=== PATIENT | female | born 1975 | race Caucasian/White ===

== ENCOUNTER 2017-09-14 17:43 | Emergency (ER) | payer OTHER ==
[~2017-09-14] VITALS: Ht 175.3 cm; Wt 72.6 kg
[~2017-09-14 17:43] MED LIST: APAP/CODEINE 301 TAB PO; BACTRIM DS TAB1 EACH PO; BENADRYL ALLERG25 MG PO; CHANTIX STARTING1 MG PO; EC NAPROSYN375 MG PO; FIORICET 325 MG1 TAB PO; FLEXERIL 5MG TAB5 MG PO; FLEXERIL10 MG PO; IBU800 MG PO; MOTRIN 600 MG600 MG PO; NICODERM C21 MG/24 H TOP; PERCOCET 325 MG1 TA2 PO; PREDNISONE 10MG10 M1 PO; PREDNISONE10 MG PO; PREDNISONE50 MG PO; Senokot S PO; VICODIN 300 MG-1 TAB PO; ZITHROMAX Z-PA250 M1 PO; ZITHROMAX250 M1 PO; ZOFRAN ODT4 M1 PO; ZOFRAN ODT4 MG SL
[2017-09-14 17:46] VITALS: BP 134/84
--- NOTE | 2017-09-14 18:23 | RADIOLOGY REPORT ---
EXAMINATION: XR HAND, RIGHT CLINICAL INFORMATION: Fall on right hand. Pain. COMPARISON: None TECHNIQUE: PA, lateral, and oblique views of the right hand. FINDINGS: The bones and soft tissues are normal. No fracture. Alignment is anatomic. Joint spaces are maintained. No erosions or soft tissue calcifications. IMPRESSION: Normal right hand.
--- NOTE | 2017-09-14 19:22 | ED DYSPNEA/ASTHMA COMPLAINT ---
History of Present Illness General Chief Complaint: Wheezing/Asthma Stated Complaint: THUMB INJURY, ASTHMA Source: patient Exam Limitations: no limitations Vital Signs & Intake/Output Vital Signs & Intake/Output Vital Signs Date Time Temp Pulse Resp B/P B/P Pulse O2 O2 Flow FiO2 Mean Ox Delivery Rate 09/14 1746 97.9 116 20 134/84 98 Room Air ED Intake and Output 09/15 0000 09/14 1200 Intake Total Output Total Balance Patient 160 lb Weight Allergies Uncoded Allergies: LEVAQUUIN (03/29/16) Reconcile Medications ACETAMINOPHEN WITH CODEINE (Acetaminophen-Cod #3 Tablet) 1 TAB TAB 1 TAB PO Q4H PRN PAIN (Reported) Azithromycin (Zithromax Z-Soy) 250 MG CAP 1 DP PO AD PNA 2 the first day followed by 1 for days 2-5 DIPHENHYDRAMINE HCL (Benadryl Allergy) 25 MG TAB 1 TAB PO TID PRN HIVES Doxycycline Hyclate (Vibramycin) 100 MG CAPSULE 1 CAP PO BID BRONCHITIS Fluconazole (Diflucan) 150 MG TABLET 1 TAB PO ONCE YEAST PPX Ibuprofen (Ibu) 800 MG TAB 1 TAB PO TID PRN PAIN (Reported) Ondansetron (Zofran Odt) 4 MG TAB.RAPDIS 1-2 TAB PO Q8H PRN NAUSEA OXYCODONE HCL/ACETAMINOPHEN (Percocet 5-325 MG Tablet) 325 MG/5 MG TAB 1-2 TAB PO Q4-6 PRN PRN PAIN Prednisone 50 MG TABLET 1 TAB PO DAILY BRONCHITIS Prednisone 10 MG TAB 1 TAB PO AD PRN HIVES DAY1/DAY2 FOUR TABS DAY3/DAY4 THREE TABS DAY 5 TWO TABS Sulfamethoxazole/Trimethoprim (Bactrim Ds Tablet) 1 EACH TABLET 1 TAB PO BID pyelonephritis Triage Note: PT STATES THAT SHE FELL THIS AM AND THAT SHE HURT HER R HAND, ALSO STATES THAT HER ASTHMA STARTED TO BOTHER HER THIS PM , NO WHEEZING NOTED, PT HAS SLIGHT COUGH NON PRODUCTIVE, DECLINES MEDS AT TRIAGE, STATES THAT SHE COULD NOT FOLLOW UP WITH [facility] BECAUSE SHE WAS IN COURT ALL DAY Triage Nurses Notes Reviewed? yes Onset: Abrupt Duration: day(s): (1) Timing: single episode today Severity: mild, moderate Activities at Onset: none Prior Episodes/Possible Cause: occasional episodes Associated Symptoms: cough, wheezing : No Patient currently breastfeeds: No HPI: 41-year-old female past medical history of kidney stones and symptoms resolved as of multiple complaints. She reports that she has had a cough productive of yellow sputum over the past 2 weeks. She reports associated wheezing and shortness of breath. No hemoptysis or chest pain. She has been using an albuterol inhaler every 4-6 hours that improvement. She states that she was treated with an antibiotic last week without improvement in her symptoms are now worsening. Additionally she reports pain in her right thumb after a fall. She states that she hyperextended the thumb earlier today. There was no head strike or loss of consciousness other injuries. No wrist pain or numbness or tingling. Pain is worse with movement she rates as a 7 out of 10. Not taking any medicine for this. Past History Travel History Traveled to [place] past 21 day No Medical History Any Pertinent Medical History? 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 No Review of Systems Review of Systems Constitutional: Reports: no symptoms. EENTM: Reports: nasal congestion. Respiratory: Reports: see HPI, cough, short of breath, sputum production, wheezing. Cardiovascular: Reports: no symptoms. GI: Reports: no symptoms. Genitourinary: Reports: no symptoms. Musculoskeletal: Reports: joint pain. Skin: Reports: no symptoms. Neurological/Psychological: Reports: no symptoms. Hematologic/Endocrine: Reports: no symptoms. Immunologic/Allergic: Reports: no symptoms. All Other Systems: Reviewed and Negative Physical Exam Physical Exam General Appearance: well developed/nourished, no apparent distress, alert, awake Head: atraumatic, normal appearance Eyes: Bilateral: normal appearance, PERRL, EOMI. Ears, Nose, Throat: normal pharynx, hearing grossly normal, nasal congestion ( clear) Neck: normal inspection, supple, full range of motion Respiratory: chest non-tender, no respiratory distress, wheezing (mild diffuse ) Cardiovascular: regular rate/rhythm (rate 90 bpm), normal peripheral pulses Peripheral Pulses: 2+ radial (R), 2+ radial (L) Gastrointestinal: soft, non-tender Extremities: normal inspection, normal range of motion, no edema, pain to palpation at the base of the right thumb. No bruising swelling or abrasions. Full range of motion of thumb is intact. No wrist or snuffbox tenderness. Neurovascular supply is intact. No other joint swelling Neurologic/Psych: no motor/sensory deficits, awake, alert, oriented x 3, normal gait, normal mood/affect Skin: intact, normal color, warm/dry Core Measures ACS in differential dx? No CVA/TIA Diagnosis No Sepsis Present: No Sepsis Focused Exam Completed? No Progress Differential Diagnosis: asthma, bronchitis, CHF, COPD, pulmonary embolism, pneumonia, gamekeepers thumb, de Quervain's tenosynovitis, sprain, strain, fracture Plan of Care: Orders Procedure Date/time Status Durable Medical Equipment 09/14 1921 Active Patient seen and evaluated. She has a injury to the right thumb after hyperextending it. There is no fracture no swelling. full range of motion is intact. Advise rest ice elevation compression. Patient given a thumb spica splint. Tylenol or ibuprofen for pain. Follow-up with primary care doctor. Patient also has diffuse wheezing bilaterally associated with a productive cough. She is not hypoxic. No hemoptysis no DVT risk factors. Patient treated with prednisone burst doxycycline and pro-air. Also advised Mucinex/Flonase for congestion. Rest and drink plenty of fluids. Follow-up with primary care doctor. Discussed return precautions patient is nontoxic-appearing and agrees to plan. Diagnostic Imaging: Viewed by Me: Radiology Read. Discussed w/RAD: Radiology Read. Radiology Impression: PATIENT: LASHAUN ALLAN PRESENT AGE: 41 PATIENT ACCOUNT NO: [id number] : 77 LOCATION: [facility] ORDERING PHYSICIAN: Darrian Paz DO SERVICE DATE: 09/14/17 EXAM TYPE: RAD - XRY-HAND, RIGHT EXAMINATION: XR HAND, RIGHT CLINICAL INFORMATION: Fall on right hand. Pain. COMPARISON: None TECHNIQUE: PA, lateral, and oblique views of the right hand. FINDINGS: The bones and soft tissues are normal. No fracture. Alignment is anatomic. Joint spaces are maintained. No erosions or soft tissue calcifications. IMPRESSION: Normal right hand. DICTATED BY: Jeremy Adhikari MD DATE/TIME DICTATED:09/14/171818 PROCESS SPECIALIST:YAMILET DATE/TIME TRANSCRIBED:09/14/171818 CONFIDENTIAL, DO NOT COPY WITHOUT APPROPRIATE AUTHORIZATION. Initial ED EKG: none Departure Departure Disposition: HOME OR SELF CARE Condition: Stable Clinical Impression Primary Impression: Acute bronchitis Qualifiers: Bronchitis organism: unspecified organism Qualified Code: J20.9 - Acute bronchitis, unspecified Secondary Impressions: Pain of right thumb Referrals: Faustino Sy APRN (PCP/Family) Additional Instructions: Rest, avoid heavy lifting bending or excessive physical activity. Wear splint. Apply ice for 15-20 minutes every FEW hours. Tylenol or ibuprofen as needed for pain. Take antibiotics and steroids as directed for the full course. Continue to use albuterol inhaler 2 puffs every 4-6 hours as needed. Make a follow-up with her primary care doctor for this week. Monitor symptoms return with any concerns. Departure Forms: Customer Survey General Discharge Information Prescriptions: Current Visit Scripts Doxycycline Hyclate (Vibramycin) 1 CAP PO BID #14 CAP Fluconazole (Diflucan) 1 TAB PO ONCE #1 TAB Prednisone 1 TAB PO DAILY #5 TAB Critical Care Note Critical Care Note Critical Care Time: non-applicable
[2017-09-14] MEDS ORDERED: DIFLUCAN150 M1 PO (19:25)
[2017-09-14] MEDS ORDERED: VIBRAMYCIN100 MG PO (19:25)
[2017-09-14] MEDS ORDERED: PREDNISONE50 M1 PO (19:25)
== END 2017-09-14 19:35 ==
LOC: ERH 17:43
DX: J20.9 Acute bronchitis, unspecified (principal); M79.644 Pain in right finger(s)
CPT/HCPCS: 73130-RT

== ENCOUNTER 2018-03-03 03:24 | Emergency (ER) | payer OTHER ==
[~2018-03-03] VITALS: Ht 175.3 cm; Wt 63.5 kg
[~2018-03-03 03:24] MED LIST changes: +DIFLUCAN150 M1 PO; +PREDNISONE50 M1 PO; +VIBRAMYCIN100 MG PO
[2018-03-03 03:44] VITALS: BP 111/74
[2018-03-03] MEDS ORDERED: AUGMENTIN 500-1 EACH PO (04:14)
[2018-03-03] MEDS ORDERED: DICLOFENAC POTA50 M1 PO (04:14)
--- NOTE | 2018-03-03 04:14 | ED ANIMAL BITE/WOUND CHECK ---
History of Present Illness General Chief Complaint: Animal/Insect Bite Stated Complaint: "BIT BY DOG YESTERDAY MORNING, IN PAIN" PER PT Source: patient Exam Limitations: no limitations Vital Signs & Intake/Output Vital Signs & Intake/Output Vital Signs Date Time Temp Pulse Resp B/P B/P Pulse O2 O2 Flow FiO2 Mean Ox Delivery Rate 03/03 0344 97.8 88 18 111/74 95 Room Air Allergies Coded Allergies: [facility] ([facility] (Severe, ANAPHYLAXIS 03/03/18) Reconcile Medications ACETAMINOPHEN WITH CODEINE (Acetaminophen-Cod #3 Tablet) 1 TAB TAB 1 TAB PO Q4H PRN PAIN (Reported) Augmentin (Augmentin 500-125 Tablet) 500 MG-125 MG TABLET 1 TAB PO TID INFECTION Azithromycin (Zithromax Z-Soy) 250 MG CAP 1 DP PO AD PNA 2 the first day followed by 1 for days 2-5 Diclofenac Potassium 50 MG TABLET 1 TAB PO TID PRN PAIN DIPHENHYDRAMINE HCL (Benadryl Allergy) 25 MG TAB 1 TAB PO TID PRN HIVES Doxycycline Hyclate (Vibramycin) 100 MG CAPSULE 1 CAP PO BID BRONCHITIS Fluconazole (Diflucan) 150 MG TABLET 1 TAB PO ONCE YEAST PPX Ibuprofen (Ibu) 800 MG TAB 1 TAB PO TID PRN PAIN (Reported) Ondansetron (Zofran Odt) 4 MG TAB.RAPDIS 1-2 TAB PO Q8H PRN NAUSEA OXYCODONE HCL/ACETAMINOPHEN (Percocet 5-325 MG Tablet) 325 MG/5 MG TAB 1-2 TAB PO Q4-6 PRN PRN PAIN Prednisone 50 MG TABLET 1 TAB PO DAILY BRONCHITIS Prednisone 10 MG TAB 1 TAB PO AD PRN HIVES DAY1/DAY2 FOUR TABS DAY3/DAY4 THREE TABS DAY 5 TWO TABS Sulfamethoxazole/Trimethoprim (Bactrim Ds Tablet) 1 EACH TABLET 1 TAB PO BID pyelonephritis Triage Note: TRIAGE: PATIENT TO ER FROM HOME REPORTING S/P DOG BITE TO MULTIPLE ITES YESTERDAY, NOTED W/ BRUISING AND SCABBING PUNCTURE WISE TO L CALF, R GROIN AND R BACK OF UPPER THIGH. PATIENT REPORTS, "THE DOG WAS UTD W/ TETNAUS AND I THINK RABIES." Triage Nurses Notes Reviewed? yes : No Patient currently breastfeeds: No HPI: Patient presents for evaluation of a dog bite wound. Patient states that she was at the dog's optometrist president/practice owner's house (a friend of hers) when she tried to break up an argument. The dog then bit her left leg and right proximal medial thigh. The incident occurred about 36 hours ago. Past History Travel History Traveled to [place] past 21 day No Medical History Any Pertinent Medical History? 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 No Review of Systems Review of Systems Constitutional: Reports: no symptoms. EENTM: Reports: no symptoms. Respiratory: Reports: no symptoms. Cardiovascular: Reports: no symptoms. GI: Reports: no symptoms. Genitourinary: Reports: no symptoms. Musculoskeletal: Reports: no symptoms. Skin: Reports: see HPI. Neurological/Psychological: Reports: no symptoms. Hematologic/Endocrine: Reports: no symptoms. Immunologic/Allergic: Reports: no symptoms. All Other Systems: Reviewed and Negative Physical Exam Physical Exam General Appearance: SEE BELOW Comments: Gen.: Well-nourished, well-developed, no acute respiratory distress. Head: Normocephalic, atraumatic. Eyes: Normal inspection bilaterally Ears: Normal inspection bilaterally Nose: Normal inspection Throat/mouth : Moist mucosa Neck: Supple, full range of motion, no goiter Heart: Regular rate and rhythm Lungs: Quiet respirations Back: Normal range of motion Extremities: Left leg: Multiple wounds over the lateral aspect with ecchymoses and mild erythema. There is no woody hardness on examination. Examination of left foot reveals normal sensation movement and distal pulses. Neurologic: Cranial nerves grossly intact, speech is clear Skin: warm and dry Psychiatric: Calm, cooperative, no apparent delusions or hallucinations Diagram Body: 1) WOUNDS 2) ECCHY WITH CENTRAL ABRASION Progress Differential Diagnosis: abscess, cellulitis, MUSCLE INJURY, TENDON INJURY, JOINT INJURY Plan of Care: SEE D/C INSTRUCTIONS Comments: Wounds were not sutured given the nature of the wound and the duration since injury. Departure Departure Disposition: HOME OR SELF CARE Condition: Stable Clinical Impression Primary Impression: Leg laceration Qualifiers: Encounter type: initial encounter Laterality: left Qualified Code: S81.812A - Laceration without foreign body, left lower leg, initial encounter Secondary Impressions: Open wound of left lower leg due to dog bite Referrals: Faustino Sy APRN (PCP/Family) Additional Instructions: Dressing changes as needed. Discontinue the hydrogen peroxide and cleaned her wound with only soapy water. Augmentin as prescribed to prevent infection. Diclofenac as needed for pain. Warm compresses. Follow-up with your primary care physician in 48-72 hours for a wound check. Return immediately if any concerns or sudden worsening. Thank you for choosing the [facility] for your care. It was a pleasure to serve you today. Darrian Hale M.D. [facility] Departure Forms: Customer Survey General Discharge Information Prescriptions: Current Visit Scripts Augmentin (Augmentin 500-125 Tablet) 1 TAB PO TID #21 TAB Diclofenac Potassium 1 TAB PO TID PRN PAIN #30 TAB
== END 2018-03-03 04:29 ==
LOC: ERH 03:24
DX: S81.812A Laceration without foreign body, left lower leg, initial encounter (principal); W54.0XXA Bitten by dog, initial encounter
CPT/HCPCS: 90471; 90714